=== PATIENT | female | born 1995 | race Caucasian/White ===

== ENCOUNTER 2021-08-28 20:26 | Emergency (ER) | payer SELFPAY ==
[2021-08-28] MEDS ORDERED: HYDROmorphone 1 MG/ML Syringe IVPUSH STA (21:32)
[2021-08-28] MEDS ORDERED: Ondansetron 4 MG/2 ML SDV IVPUSH ONE (21:32)
[2021-08-28] MEDS ORDERED: Sodium Chloride 0.9% 1,000 ML IV SCH (21:45)
[2021-08-28] MEDS ORDERED: Tamsulosin 0.4 MG Cap.ER PO ONE (23:40)
== END 2021-08-29 00:13 | disposition home or self-care (01) ==
LOC: JD.ED 20:26
DX: N13.2 Hydronephrosis with renal and ureteral calculous obstruction (principal); E66.9 Obesity, unspecified; Z68.39 Body mass index [BMI] 39.0-39.9, adult; Z86.16 Personal history of COVID-19
CPT/HCPCS: 36415; 74177; 80053; 81001; 81025; 83690; 85007; 85027; 87086; 96374; 96375; 99284; A9270; J1170; J2405; J7030; 99285